=== PATIENT | male | born 1980 | race Caucasian/White ===

== ENCOUNTER 2019-02-12 07:45 | Inpatient (IN) | payer OTHER ==
[2019-02-12 08:21] LABS: Absolute Lymphocytes (CBC) 1.7 K/uL (0.7-4.9); Basophils % 0.4 % (0-1.3); Hematocrit 50.2 % (39.6-49.0); Lymphocytes % 25.7 % (15.3-44.8); MPV 8.1 fL (7.6-11.3); RBC Red Blood Cell Count 5.34 M/uL (4.33-5.43)
[2019-02-12 08:28] LABS: Protime INR 0.95
[2019-02-12 08:38] LABS: Potassium 3.7 mmol/L (3.5-5.1); Troponin (Emerg Dept Use Only) 0.25 ng/mL (0.0-0.045)
[2019-02-12] MEDS ORDERED: ASPIRIN 81 MG CHEWABLE TABLET ONE (08:41)
[2019-02-12] MEDS ORDERED: NITROGLYCERIN 0.4 MG/TAB SL ONE (08:41)
[2019-02-12] MEDS ORDERED: ENOXAPARIN 80 MG/0.8 ML SQ ONE (08:45)
--- NOTE | 2019-02-12 08:46 | RAD REPORT ---
EXAM DESCRIPTION: RAD - Chest Single View - 02/12/2019 8:19 am CLINICAL HISTORY: CHEST PAIN Chest pain. COMPARISON: Chest Single View dated 10/25/2016 FINDINGS: Portable technique limits examination quality. Interstitial prominence is present bilaterally. The heart is normal in size. No displaced fractures. IMPRESSION: Mild bilateral interstitial prominence could indicate interstitial pulmonary edema or vi ral pneumonitis.
--- NOTE | 2019-02-12 08:46 | ER ---
Nurse's Notes [facility] Name: Aquiles Lobato Age: 38 yrs Sex: Male : 1980 Arrival Date: 02/12/2019 Time: 07:46 Bed 16 Private MD: Diagnosis: Non-ST elevation (NSTEMI) myocardial infarction Presentation: 02/12 07:55 Presenting complaint: Patient states: around 5 am today, i started having chest pain, hj like a pressure and tingly and numb feeling that radiates to my L arm to my L upper back, it happened to me 3 years ago, denies N/V; reports SOB; pain is 6/10;. Transition of care: patient was not received from another setting of care. Onset of symptoms was February 12, 2019. Risk Assessment: Do you want to hurt yourself or someone else? Patient reports no desire to harm self or others. Initial Sepsis Screen: Does the patient meet any 2 criteria? No. Patient's initial sepsis screen is negative. Does the patient have a suspected source of infection? No. Patient's initial sepsis screen is negative. Care prior to arrival: None. 07:55 Method Of Arrival: Ambulatory 07:55 Acuity: TOMA 3 hj Triage Assessment: 07:59 General: Appears in no apparent distress. uncomfortable, Behavior is calm, cooperative, hj appropriate for age. Pain: Complains of pain in chest. Cardiovascular: Reports chest pain. Historical: - Allergies: 07:58 No Known Allergies; hj - PMHx: 07:58 Anxiety; Depression; hj - PSHx: 07:58 Vasectomy; hj - Immunization history:: Adult Immunizations up to date. - Social history:: Smoking status: Patient/guardian denies using tobacco, Patient uses alcohol. - Ebola Screening: : Patient negative for fever greater than or equal to 101.5 degrees Fahrenheit, and additional compatible Ebola Virus Disease symptoms Patient denies exposure to infectious person Patient denies travel to an Ebola-affected area in the 21 days before illness onset. - Family history:: not pertinent. - Hospitalizations: : No recent hospitalization is reported. Screenin:59 Abuse screen: Denies threats or abuse. Denies injuries from another. Nutritional hj screening: No deficits noted. Tuberculosis screening: No symptoms or risk factors identified. Fall Risk None identified. Assessment: 08:00 Pain: Pain radiates to back and left arm Pain began gradually, 3 hours ago. hj Vital Signs: 07:58 BP 148 / 89; Pulse 73; Resp 18; Temp 98.5(O); Pulse Ox 99% on R/A; Weight 72.57 kg; hj Height 5 ft. 6 in. (167.64 cm); Pain 6/10; 08:28 BP 133 / 63; Pulse 65; Resp 18; Pulse Ox 100% on R/A; hj 08:49 BP 134 / 90; Pulse 71; Resp 18; Temp 97.2(TE); Pulse Ox 98% on R/A; hj 09:37 BP 141 / 80; Pulse 82; Resp 18; Temp 98.0(TE); Pulse Ox 99% on R/A; hj 07:58 Body Mass Index 25.82 (72.57 kg, 167.64 cm) hj ED Course: 07:46 Patient arrived in ED. as 07:50 Fortino Angel, RN is Primary Nurse. hj 07:55 Dinh Oneil MD is Attending Physician. rn 07:57 Triage completed. hj 08:00 Arm band placed on. hj 08:00 Patient has correct armband on for positive identification. Placed in gown. Bed in low hj position. Call light in reach. Side rails up X 1. industrial conveyor belt repairer on. Pulse ox on. NIBP on. 08:01 Patient maintains SpO2 saturation greater than 95% on room air. hj 08:10 Initial lab(s) drawn, by id, sent to lab. Inserted saline lock: 20 gauge in left hj antecubital area, using aseptic technique. Blood collected. 08:10 EKG done, by field service poultry technician. reviewed by Dinh Oneil MD. tc 08:24 XRAY Chest (1 view) In Process Unspecified. EDMS 08:45 Mukul Adam DO is Hospitalizing Provider. rn 10:00 No provider procedures requiring assistance completed. Patient admitted, IV remains in hj place. intact. Administered Medications: 08:38 Drug: Nitroglycerin 0.4 mg Route: Sublingual; hj 09:52 Follow up: Response: No adverse reaction hj 08:40 Drug: Aspirin Chewable Tablet 324 mg Route: PO; hj 09:52 Follow up: Response: No adverse reaction hj 08:43 Drug: Lovenox 1 mg/kg Route: Sub-Q; Site: left upper arm; hj 09:52 Follow up: Response: No adverse reaction hj 09:50 Drug: Effient 60 mg Route: PO; hj 09:57 Follow up: Response: No adverse reaction hj Outcome: 08:46 Decision to Hospitalize by Provider. rn 10:01 Admitted to Family Service Assistant accompanied by nurse, via stretcher, on monitor, with chart, hj Report called to ED pie bakery laborer nurse picked up pt; 10:01 Condition: stable 10:01 Instructed on the need for admit, Demonstrated understanding of instructions. 10:02 Patient left the ED. janice Signatures: Dispatcher [employer] Erendira Mayers Roman, MD MD rn Callis, Tiffany, farm general manager EKG [facility] Fortino Angel RN ANNMARIE
--- NOTE | 2019-02-12 08:47 | EDPHYS ---
Physician Documentation [facility] Name: Aquiles Lobato Age: 38 yrs Sex: Male : 1980 Arrival Date: 02/12/2019 Time: 07:46 Bed 16 Private MD: ED Physician Dinh Oneil HPI: 02/12 08:03 This 38 yrs old Male presents to ER via Ambulatory with complaints of Chest rn Pain. 08:03 The patient or guardian reports chest pain that is located primarily in the substernal rn area. Onset: this morning, at 05:00. The pain radiates to the left arm. Associated signs and symptoms: Pertinent positives: diaphoresis, shortness of breath, Pertinent negatives: abdominal pain, cough, syncope, vomiting. The chest pain is described as a pressure, squeezing. Duration: The patient or guardian reports a single episode, that is still ongoing. Modifying factors: The symptoms are alleviated by nothing. the symptoms are aggravated by nothing. Severity of pain: At its worst the pain was moderate in the emergency department the pain is unchanged. The patient has experienced a previous episode. REports woke up with chest tightness that began at 0500, constantly getting worse, similar to previous MA 3 years ago, takes aspirin and beta tahir, assoc with diaphoresis and sob. . Historical: - Allergies: 07:58 No Known Allergies; hj - PMHx: 07:58 Anxiety; Depression; hj - PSHx: 07:58 Vasectomy; hj - Immunization history:: Adult Immunizations up to date. - Social history:: Smoking status: Patient/guardian denies using tobacco, Patient uses alcohol. - Ebola Screening: : Patient negative for fever greater than or equal to 101.5 degrees Fahrenheit, and additional compatible Ebola Virus Disease symptoms Patient denies exposure to infectious person Patient denies travel to an Ebola-affected area in the 21 days before illness onset. - Family history:: not pertinent. - Hospitalizations: : No recent hospitalization is reported. ROS: 08:03 Constitutional: Negative for fever, chills, and weight loss, Eyes: Negative for injury, rn pain, redness, and discharge, Neck: Negative for injury, pain, and swelling, Cardiovascular: Negative for palpitations, and edema, Respiratory: Negative for cough, wheezing, and pleuritic chest pain, Abdomen/GI: Negative for abdominal pain, nausea, vomiting, diarrhea, and constipation, MS/Extremity: Negative for injury and deformity, Skin: Negative for injury, rash, and discoloration, Neuro: Negative for headache, weakness, numbness, tingling, and seizure. Exam: 08:03 Constitutional: This is a well developed, well nourished patient who is awake, alert, rn appears concerned Head/Face: Normocephalic, atraumatic. ENT: MMM Cardiovascular: Regular rate and rhythm. No pulse deficits. Respiratory: Lungs have equal breath sounds bilaterally, clear to auscultation. No increased work of breathing, no retractions or nasal flaring. Abdomen/GI: soft, non-tender MS/ Extremity: Pulses equal, no cyanosis. Neurovascular intact. Full, normal range of motion. Equal circumference. Neuro: Awake and alert, GCS 15, oriented to person, place, time, and situation. Cranial nerves II-XII grossly intact. Motor strength 5/5 in all extremities. Sensory grossly intact. Vital Signs: 07:58 BP 148 / 89; Pulse 73; Resp 18; Temp 98.5(O); Pulse Ox 99% on R/A; Weight 72.57 kg; hj Height 5 ft. 6 in. (167.64 cm); Pain 6/10; 08:28 BP 133 / 63; Pulse 65; Resp 18; Pulse Ox 100% on R/A; hj 08:49 BP 134 / 90; Pulse 71; Resp 18; Temp 97.2(TE); Pulse Ox 98% on R/A; hj 09:37 BP 141 / 80; Pulse 82; Resp 18; Temp 98.0(TE); Pulse Ox 99% on R/A; hj 07:58 Body Mass Index 25.82 (72.57 kg, 167.64 cm) MDM: 07:55 Patient medically screened. rn 08:44 Differential diagnosis: acute myocardial infarction, acute pericarditis, coronary rn artery disease stable angina, unstable angina. The patient was given aspirin in the Emergency Department. Data reviewed: vital signs, nurses notes, lab test result(s), EKG, radiologic studies, plain films, and as a result, I will admit patient. Counseling: I had a detailed discussion with the patient and/or guardian regarding: the historical points, exam findings, and any diagnostic results supporting the discharge/admit diagnosis, lab results, radiology results, the need for further work-up and treatment in the hospital. Admission orders: after a detailed discussion of the patient's condition and case, the admit orders are written by me. ED course: Pt with concerning cardiac story, + hx of MA, elevated troponin, given aspirin/nitro/lovenox in ER, will admit for cardiac eval and likely cath.. 09:01 ED course: Consulted with Dr. Null \T\ [id number], will see patient.. rn 02/12 08:01 Order name: Basic Metabolic Panel; Complete Time: 08:40 rn 02/12 08:01 Order name: CBC with Diff; Complete Time: 08:40 rn 02/12 08:01 Order name: NT PRO-BNP; Complete Time: 08:40 rn 02/12 08:01 Order name: PT-INR; Complete Time: 08:40 rn 02/12 08:01 Order name: Troponin (emerg Dept Use Only); Complete Time: 08:40 rn 02/12 08:01 Order name: XRAY Chest (1 view); Complete Time: 08:53 rn 02/12 07:50 Order name: EKG; Complete Time: 07:51 02/12 09:04 Order name: EKG Electrocardiogram EDMS 02/12 09:04 Order name: EKG Electrocardiogram EDMS 02/12 09:38 Order name: CL CARDIAC CATH - REQUEST EDMS 02/12 08:01 Order name: Cardiac monitoring; Complete Time: 08:02 rn 02/12 08:01 Order name: EKG - Nurse/Tech; Complete Time: 08:02 rn 02/12 08:01 Order name: IV Saline Lock; Complete Time: 08:10 rn 02/12 08:01 Order name: Labs collected and sent; Complete Time: 08:10 rn 02/12 08:01 Order name: O2 Per Protocol; Complete Time: 08:03 rn 02/12 08:01 Order name: O2 Sat Monitoring; Complete Time: 08:03 rn 02/12 09:38 Order name: NPO EDMS Administered Medications: 08:38 Drug: Nitroglycerin 0.4 mg Route: Sublingual; hj 09:52 Follow up: Response: No adverse reaction hj 08:40 Drug: Aspirin Chewable Tablet 324 mg Route: PO; hj 09:52 Follow up: Response: No adverse reaction hj 08:43 Drug: Lovenox 1 mg/kg Route: Sub-Q; Site: left upper arm; hj 09:52 Follow up: Response: No adverse reaction hj 09:50 Drug: Effient 60 mg Route: PO; hj 09:57 Follow up: Response: No adverse reaction hj Disposition: 02/12/19 08:46 Hospitalization ordered by Mukul Adam for Inpatient Admission. Preliminary diagnosis is Non-ST elevation (NSTEMI) myocardial infarction. - Bed requested for Telemetry/MedSurg (Inpatient). - Status is Inpatient Admission. hj - Condition is Stable. - Problem is new. - Symptoms have improved. UTI on Admission? No Signatures: Dispatcher [employer] EDDinh Salamanca MD MD rn Joaquin, Henry, RN RN hj Corrections: (The following items were deleted from the chart) 10:02 08:46 Hospitalization Ordered by Mukul Adam DO for Inpatient Admission. Preliminary diagnosis is Non-ST elevation (NSTEMI) myocardial infarction. Bed requested for Telemetry/MedSurg (Inpatient). Status is Inpatient Admission. Condition is Stable. Problem is new. Symptoms have improved. UTI on Admission? No. rn
[2019-02-12] MEDS ORDERED: PRASUGREL (EFFIENT) 10 MG TAB PO ONE (09:35)
--- NOTE | 2019-02-12 09:37 | EKG ---
Test Date: 2019-02-12 Test Time: 08:55:18 Fusion Analyst: TATI MEASUREMENT RESULTS: Intervals: Rate: 68 NC: 122 QRSD: 92 QT: 438 QTc: 465 [place]: P: 55 NC: 122 QRS: 63 T: 144 INTERPRETIVE STATEMENTS: Normal sinus rhythm ST & T wave abnormality, consider lateral ischemia Prolonged QT Abnormal ECG Compared to ECG 02/12/2019 08:54:53 No significant changes Electronically Signed On 02-12-19 09:36:47 CDT by Keo Null
--- NOTE | 2019-02-12 09:37 | EKG ---
Test Date: 2019-02-12 Test Time: 08:54:53 Manager Business Intelligence: TATI MEASUREMENT RESULTS: Intervals: Rate: 65 NC: 124 QRSD: 92 QT: 444 QTc: 461 [place]: P: 57 NC: 124 QRS: 64 T: 151 INTERPRETIVE STATEMENTS: Normal sinus rhythm ST & T wave abnormality, consider lateral ischemia Prolonged QT Abnormal ECG Compared to ECG 02/12/2019 07:59:27 ST (T wave) deviation now present Possible ischemia now present Prolonged QT interval now present Atrial abnormality no longer present Left ventricular hypertrophy no longer present Electronically Signed On 02-12-19 09:37:00 CDT by Keo Null
--- NOTE | 2019-02-12 09:39 | EKG ---
Test Date: 2019-02-12 Test Time: 07:59:27 Consumer Marketing Manager: TATI MEASUREMENT RESULTS: Intervals: Rate: 72 GA: 120 QRSD: 90 QT: 388 QTc: 424 [place]: P: 61 GA: 120 QRS: 64 T: 176 INTERPRETIVE STATEMENTS: Normal sinus rhythm Right atrial enlargement Left ventricular hypertrophy ST and T abnormality consider subendocardial ischemia Abnormal ECG Compared to ECG 10/26/2016 06:21:12 Atrial abnormality now present Left ventricular hypertrophy now present Sinus bradycardia no longer present Electronically Signed On 02-12-19 09:38:16 CDT by Keo Null
[2019-02-12] MEDS ORDERED: HEPA 1000U/500MLS 2,000 UNIT/1,000 ML BAG IV ONE (09:40)
[2019-02-12] MEDS ORDERED: ATROPINE SULF 1 MG/10 ML SYR IV ONE (09:40)
[2019-02-12] MEDS ORDERED: NA CHLORIDE 0.9% 0 ML ONE (09:40)
[2019-02-12] MEDS ORDERED: NITROGLYCERIN 100 MCG/ML SYR (for cath lab use only) IV ONE (09:41)
[2019-02-12] MEDS ORDERED: HEPARIN 5000 UNIT/ML 1 ML VIAL ONE (09:41)
[2019-02-12] MEDS ORDERED: NICARDIPINE HCL 25 MG/10 ML IV ONE (09:41)
[2019-02-12] MEDS ORDERED: NA CHLORIDE 0.9% 500 ML ONE (09:42)
[2019-02-12] MEDS ORDERED: PRASUGREL (EFFIENT) 10 MG TAB ONE (09:54)
--- NOTE | 2019-02-12 09:54 | P.HP ---
Certification for Inpatient Patient admitted to: Inpatient With expected LOS: >2 Midnights Patient will require the following post-hospital care: None Practitioner: I am a practitioner with admitting privileges, knowledge of patient current condition, hospital course, and medical plan of care. Services: Services provided to patient in accordance with Admission requirements found in Title 42 Section 412.3 of the Code of Federal Regulations Patient History Date of Service: 02/12/19 Primary Care Provider: Dr. Melo; Cardiology-Dr. Garrido Reason for admission: Chest pain History of Present Illness: 38-year-old male presented to the emergency room with chest pain. Patient reported severe chest pain to the substernal region this morning. It occurred at rest. He rated the pain about a 7 out of 10 up to 10/10. It was a crushing pressure-like sensation. It was associated with some shortness of breath, lightheadedness, and dizziness. Pain radiated to the left arm with numbness. He also had some radiation to the back. He actually drove himself to the ER for further evaluation. Patient with underlying hypertension and tobacco abuse. In the ER patient evaluated. Patient given nitro to help with chest pain. Vital signs stable this time. EKG showed some lateral strain. Initial troponin 0.25. White count 6.7. Hemoglobin 17. Sodium 141, potassium 3.7. BUN of 16, creatinine 1.26 with a GFR 63. Glucose 71. Patient admitted for further evaluation and treatment. When I saw the patient in the ER, Cardiology was also present. Cardiology plans for emergent heart catheterization to further evaluate and treat. Cardiology reports that patient had an echo about 3 years ago with LVH. Allergies No Known Allergies Allergy (Verified 10/25/16 15:31) Home medications list reviewed: Yes Home Medications: Escitalopram Oxalate [Lexapro] 10 mg PO BEDTIME 10/25/16 Metoprolol Tartrate [Lopressor*] 50 mg PO BID #60 tab 10/26/16 - Past Medical/Surgical History Diabetic: No -: Depression -: Hypertension with LVH -: Vasectomy Psychosocial/ Personal History: Patient is - Family History Mother -: Hypertension - Social History Smoking Status: Current every day smoker Counseled patient to stop smoking for: less than 10 minutes Smoking therapy provided: Yes Patient receptive to therapy: Yes Alcohol use: Yes CD- Drugs: No Caffeine use: Yes Place of Residence: Home Review of Systems General: Weakness, As per HPI Eyes: Unremarkable ENT: Unremarkable Respiratory: Shortness of Breath, As per HPI Cardiovascular: Chest Pain, Light Headedness, As per HPI Gastrointestinal: Nausea, As per HPI Genitourinary: Unremarkable Musculoskeletal: Unremarkable Integumentary: Unremarkable Neurological: Numbness, As per HPI Lymphatics: Unremarkable Physical Examination - Physical Exam General: Alert, In no apparent distress, Oriented x3, Cooperative HEENT: Atraumatic, Normocephalic, PERRLA, Mucous membr. moist/pink Neck: Supple, No Thyromegaly Respiratory: Clear to auscultation bilaterally, Normal air movement Cardiovascular: Normal pulses, Regular rate/rhythm Gastrointestinal: Normal bowel sounds, Soft and benign, Non-distended, No ascites, No tenderness, No masses, No rebound, No guarding Musculoskeletal: No erythema, No tenderness, No warmth Integumentary: No tenderness/swelling, No erythema, No warmth, No cyanosis Neurological: Normal speech, Normal strength at 5/5 x4 extr, Normal tone, Normal affect - Studies Laboratory Data (last 24 hrs) 02/12/19 08:10: PT 11.2, INR 0.95 02/12/19 08:10: WBC 6.7, Hgb 17.0, Hct 50.2 H, Plt Count 288 02/12/19 08:10: Sodium 141, Potassium 3.7, BUN 16, Creatinine 1.26, Glucose 71 L Assessment and Plan - Plan Impression: Chest pain secondary to non ST wave PR Hypertension with history of LVH Tobacco abuse Occasional alcohol use Plan: Chest pain secondary to non ST wave PR: Patient will be admitted to ICU to further address and treat. Case discussed at length with cardiology who was present during the examination. Cardiology plans for Emergent heart catheterization within the hour for further evaluation and likely treatment. Will continue with aspirin, Plavix, beta-tahir therapy and high-dose Lipitor. Will continue to monitor closely. Will keep the patient NPO at this time in preparation for heart catheterization. Await findings. Will provide DVT prophylaxis-SCDs for now. Anticipate discharge in the next 24-48 hr pending results of heart catheterization. Hypertension with history of LVH: Will start metoprolol. Will check echocardiogram. Tobacco abuse: Tobacco cessation addressed in detail. Patient desires to quit. Will provide nicotine patch. Occasional alcohol use: Encouraged alcohol cessation. Discharge Plan: Home Plan to discharge in: 48 Hours - Advance Directives Does patient have a Living Will: No Does patient have a Durable POA for Healthcare: No - Code Status/Comfort Care Code Status Assessed: Yes (Patient is full code.) Time Spent Managing Pts Care (In Minutes): 60
[2019-02-12] MEDS ORDERED: FENTANYL CITR 100 MCG/2 ML ONE (10:09)
[2019-02-12] MEDS ORDERED: MIDAZOLAM HCL 2 MG/2 ML INJ ONE ×2 (10:09→10:22)
[2019-02-12] MEDS ORDERED: ONDANSETRON 4 MG/2 ML VIAL IV PRN (11:43)
[2019-02-12] MEDS ORDERED: ACETAMINOPHEN 500 MG TAB PO PRN (11:43)
[2019-02-12 12:11] VITALS: BMI 23.5
[2019-02-12] MEDS: TRAMADOL HCL 50 MG TAB PO PRN ×2 (13:10→21:10)
--- NOTE | 2019-02-12 13:11 | CON ---
History Of Present Illness: Mr. Lobato is 38. He has enjoyed good health most of his life. 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 He continues to smoke. Alcohol use, moderate. No illegal drugs. Started having ches t pain this morning at 5 a.m. Chest pain is central, pressure-like, sweating, nausea, and in general , he just feels bad, not very painful, so he came to the ER. An EKG shows nonspecific changes, not v elias different from his EKGs from a few years ago. His enzymes are abnormal and we believe he is havi ng a non-ST elevation [place]. I have recommended cardiac cath to him. He seems to understand the proced ure, potential benefits, indications, risks, and he agrees to proceed, although he has not signed con sent form yet. He is going to discuss the whole situation with his . The patient has never had a cardiac cath before or a stress test. His only outpatient medication is metoprolol, prescribed by Dr. Melo. Physical Examination: General: He is alert, oriented, pleasant, well developed, well nourished. He is not overweight or o bese. Alert and oriented. Vital Signs: His blood pressure is 133/63, pulse 65. He is 5 feet 6 inches and his weight is 72.5 k g. HEENT: Normal. Neck: Carotids, no bruit. Lungs: Clear. Cardiac: Within normal limits. Abdomen: Soft. Extremities: Normal. Normal pulses. Diagnostic Studies: His electrocardiogram shows diffuse ST abnormality and T-wave inversion. Border line voltage for LVH. Impression: I have recommended emergency cardiac cath to Mr. Lobato. He seems to understand the procedure. If he signs the consent form, we will do it as soon as we can arrange it. JOAQUÍN/CARSON Voice ID: [id number] Report ID: [id number]
[2019-02-12 13:48] LABS: Barbiturates NEGATIVE (NEGATIVE); Benzodiazepines POSITIVE (NEGATIVE); Cocaine NEGATIVE (NEGATIVE); METHAMPHETAM NEGATIVE (NEGATIVE); Methadone NEGATIVE (NEGATIVE); Opiates NEGATIVE (NEGATIVE); Phencyclidine NEGATIVE (NEGATIVE); THC Cannibis NEGATIVE (NEGATIVE)
--- NOTE | 2019-02-12 14:56 | ECHO ---
HEIGHT: 5 ft 7 in WEIGHT: 150 lb 0 oz DATE OF STUDY: 02/12/[address]: Mukul Adam DO 2-DIMENSIONAL: YES M.MODE: YES DOPPLER: YES COLOR FLOW: YES TDS: NO PORTABLE: YES DEFINITY: NO BUBBLE STUDY: NO DIAGNOSIS: EVALUATE FOR HYPERTROPHIC CARDIOMYOPATHY CARDIAC HISTORY: CATHERIZATION: YES SURGERY: NO PROSTHETIC VALVE: NO PACEMAKER: NO MEASUREMENTS (cm) DIASTOLIC (NORMALS) SYSTOLIC (NORMALS) IVSd 1.2 (0.6-1.2) LA Diam 3.4 (1.9-4.0) LVEF 68% LVIDd 3.6 (3.5-5.7) LVIDs 2.2 (2.0-3.5) %FS 37% LVPWd 1.3 (0.6-1.2) Ao Diam 3.0 (2.0-3.7) 2 DIMENSIONAL ASSESSMENT: RIGHT ATRIUM: NORMAL LEFT ATRIUM: NORMAL RIGHT VENTRICLE: NORMAL LEFT VENTRICLE: ASYMMETRICAL SEPTAL HYPERTROPHY TRICUSPID VALVE: NORMAL MITRAL VALVE: NORMAL PULMONIC VALVE: NORMAL AORTIC VALVE: NORMAL PERICARDIAL EFFUSION: NONE AORTIC ROOT: NORMAL LEFT VENTRICULAR WALL MOTION: NORMAL DOPPLER/COLOR FLOW: NORMAL. NO LEFT VENTRICULAR OUTFLOW TRACT GRADIENT. COMMENTS: NORMAL LEFT VENTRICULAR EJECTION FRACTION. ASYMMETRICAL SEPTAL HYPERTROPHY WITHOUT SYSTOLIC ANTERIOR MOTION OF MITRAL VALVE AND WITHOUT LEFT VENTRICULAR OUTFLOW TRACT GRADIENT. TECHNOLOGIST: Betty CLOUD
[2019-02-12 15:42] LABS: CKMB Creatine Kinase MB 1.4 ng/mL (0.3-3.6); Troponin I 0.25 ng/mL (0.0-0.045)
[2019-02-12] MEDS: HYDROCODONE/APAP 7.5/325 MG TAB PO PRN (16:58)
[2019-02-12] MEDS: DOCOSAHEXANOIC AC/EPA 1000 MG PO SCH (20:50)
[2019-02-12] MEDS: DILTIAZEM HCL 60 MG TAB PO SCH (20:50)
[2019-02-12] MEDS ORDERED: ATORVASTATIN 80 MG TAB PO SCH (21:00)
--- NOTE | 2019-02-12 21:47 | OP ---
Surgeon: Keo Null MD Procedures: Left heart catheterization, coronary and left ventricular angiography. Findings: The patient has normal coronary arteries. There are few anomalies that are not responsibl e for his chest pain, they are not a clinical problem. He has a very large conus branch that gives r ise to blood flow to the right ventricular free wall. He is right dominant and his distal LAD has a myocardial bridge, but not any stenosis. He does not need any stents. His ejection fraction is norm al. Left ventricular end-diastolic pressure is 13, upper limits of normal. Procedure In Detail: The patient was brought to the cardiac lab rn in a fasting state, sedated wit h Versed and fentanyl. Prepared and draped in usual sterile fashion. Right radial approach was used . Lidocaine 1% was used to anesthetize the skin around the right radial artery. It was then entered with a 21-gauge needle, cannulated with a 0.021 inch diameter guidewire. 6-[place] Terumo radial she ath was then placed and radial cocktail was given consisting of heparin, nitroglycerin, and nicardipi ne. A TIG catheter was advanced to the aortic root. It was used to angiogram right coronary, left v entricle and left coronary. At the end of the procedure when it was apparent he did not need any int ervention, the catheter was withdrawn over a J-wire. The sheath was removed. The arteriotomy closed with a TR Band. We will leave the TR Band for 12 hours before attempting to deflate it as the patie nt received Lovenox before the procedure. JOAQUÍN/CARSON Voice ID: [id number] Report ID: [id number]
[2019-02-12 23:18] LABS: CKMB Creatine Kinase MB 1.5 ng/mL (0.3-3.6); Troponin I 0.25 ng/mL (0.0-0.045)
[2019-02-13] MEDS: HYDROCODONE/APAP 7.5/325 MG TAB PO PRN (00:24)
[2019-02-13 05:28] LABS: Absolute Lymphocytes (CBC) 2.4 K/uL (0.7-4.9); Basophils % 0.5 % (0-1.3); Lymphocytes % 30.8 % (15.3-44.8); MPV 8.3 fL (7.6-11.3); RBC Red Blood Cell Count 4.87 M/uL (4.33-5.43)
[2019-02-13 06:02] LABS: Magnesium 2.3 mg/dL (1.8-2.4); Potassium 3.9 mmol/L (3.5-5.1)
[2019-02-13 06:03] LABS: Thyroid Stimulating Hormone 10.4 uIU/mL (0.360-3.740)
--- NOTE | 2019-02-13 07:03 | RAD REPORT ---
EXAM DESCRIPTION: RAD - C Spine Ap/Lat - 02/12/2019 11:33 pm CLINICAL HISTORY: Neck pain, left arm numbness COMPARISON: None. FINDINGS: Cervical bodies are normal in height and alignment. No fracture or acute bony process seen . Slight narrowing of the C5-6 disc space noted. There is no prevertebral soft tissue thickening or other suspicious soft tissue finding. External artifacts overlie the lower neck. IMPRESSION: Slight narrowing of the C5-6 disc space. No acute findings seen. Concerns for disc herniation, central canal abnormality or occult bone process can be addressed with MR imaging.
[2019-02-13] MEDS ORDERED: NA CHLORIDE 0.9% 1,000 ML IV ONE (07:47)
[2019-02-13] MEDS: NICOTINE 21 MG/PAT TD SCH ×2 (08:02→08:55)
[2019-02-13] MEDS: DOCOSAHEXANOIC AC/EPA 1000 MG PO SCH (08:03)
[2019-02-13] MEDS: TRAMADOL HCL 50 MG TAB PO PRN (08:37)
[2019-02-13] MEDS: DILTIAZEM HCL 60 MG TAB PO SCH (08:43)
[2019-02-13] MEDS ORDERED: POTASSIUM CL SA 10 MEQ TAB PO ONE (09:00)
[2019-02-13] MEDS ORDERED: ASPIRIN EC 81 MG TAB PO SCH (09:00)
[2019-02-13] MEDS ORDERED: FOLIC ACID 1 MG TABLET PO SCH (09:00)
--- NOTE | 2019-02-13 09:15 | P.DS ---
Admission Date: 02/12/19 Discharge Date: 02/13/19 Primary Care Provider: Dr. Melo; Cardiology-Dr. Garrido Disposition: ROUTINE DISCHARGE Discharge Condition: GOOD Reason for Admission: Chest pain Consultations: Cardiology-Dr. Null Procedures: Heart Cath: Surgeon: Keo Null MD Procedures: Left heart catheterization, coronary and left ventricular angiography. Findings: The patient has normal coronary arteries. There are few anomalies that are not responsible for his chest pain, they are not a clinical problem. He has a very large conus branch that gives rise to blood flow to the right ventricular free wall. He is right dominant and his distal LAD has a myocardial bridge, but not any stenosis. He does not need any stents. His ejection fraction is normal. Left ventricular end-diastolic pressure is 13, upper limits of normal. ECHO: Ejection fraction 68% LEFT VENTRICULAR WALL MOTION: NORMAL DOPPLER/COLOR FLOW: NORMAL. NO LEFT VENTRICULAR OUTFLOW TRACT GRADIENT. COMMENTS: NORMAL LEFT VENTRICULAR EJECTION FRACTION. ASYMMETRICAL SEPTAL HYPERTROPHY WITHOUT SYSTOLIC ANTERIOR MOTION OF MITRAL VALVE AND WITHOUT LEFT VENTRICULAR OUTFLOW TRACT GRADIENT. Xray: FINDINGS: Cervical bodies are normal in height and alignment. No fracture or acute bony process seen. Slight narrowing of the C5-6 disc space noted. There is no prevertebral soft tissue thickening or other suspicious soft tissue finding. External artifacts overlie the lower neck. IMPRESSION: Slight narrowing of the C5-6 disc space. No acute findings seen. Medical problem list: Chest pain with elevated troponin suspected non ST wave DC status post heart catheterization showing normal Coronary arteries Left-sided upper extremity paresthesia likely related to degenerative disc disease with x-ray showing slight narrowing of the C5-C6 disc space Hypertension with echocardiogram showing asymmetric septal hypertrophy Subclinical hypothyroidism Tobacco abuse Occasional alcohol use Brief History of Present Illness: 38-year-old male presented to the emergency room with chest pain. Patient reported severe chest pain to the substernal region this morning. It occurred at rest. He rated the pain about a 7 out of 10 up to 10/10. It was a crushing pressure-like sensation. It was associated with some shortness of breath, lightheadedness, and dizziness. Pain radiated to the left arm with numbness. He also had some radiation to the back. He actually drove himself to the ER for further evaluation. Patient with underlying hypertension and tobacco abuse. In the ER patient evaluated. Patient given nitro to help with chest pain. Vital signs stable this time. EKG showed some lateral strain. Initial troponin 0.25. White count 6.7. Hemoglobin 17. Sodium 141, potassium 3.7. BUN of 16, creatinine 1.26 with a GFR 63. Glucose 71. Patient admitted for further evaluation and treatment. When I saw the patient in the ER, Cardiology was also present. Cardiology plans for emergent heart catheterization to further evaluate and treat. Cardiology reports that patient had an echo about 3 years ago with [facility]. Hospital Course: Patient presented with chest pain. Patient found to have elevated troponin. Non ST wave DC was suspected. Patient was seen and evaluated by Cardiology in the emergency room. Emergent heart catheterization was performed. Heart catheterization showed Normal Coronary arteries. No evidence of coronary artery disease identified. Echocardiogram showed normal ejection fraction with asymmetric septal hypertrophy. Patient did well in his stay. Blood pressure remains within normal range. Patient previously on beta-tahir therapy- metoprolol 25 mg daily. At discharge no significant chest pain noted. Patient stable for discharge. At discharge recommend to discontinue metoprolol. At discharge patient will continue with verapamil 60 mg 1 pill daily. He is to hold blood pressure medication if systolic less than 120. Recommend to maintain blood pressures less 150/80. Further adjustment can be done by his PCP. Recommend to monitor blood pressures closely to further monitor. Patient may continue with aspirin 81 mg daily. Recommend follow up with cardiology in 1 -2 weeks to follow up this hospitalization. Patient also reported left-sided upper extremity paresthesias. Cardiac causes ruled out. Patient had x-ray to the spine showing slight narrowing of the C5- C6 disc space. Patient likely with underlying disc disease. Recommend follow up with his PCP to further address. Patient will likely require MRI to further evaluate. Patient may benefit with spine orthopedic evaluation as an outpatient to further address. At discharge patient will be provided Neurontin 100 mg twice daily to be use as needed for pain. Patient found to have subclinical hypothyroidism. Tsh 10.4, free T4 0.86. Recommend to recheck lab-tsh and free T4 in 2-4 weeks. If consistently abnormal patient may require medication for hypothyroidism. This can be further addressed by his PCP. Patient with tobacco and alcohol use. Recommend cessation. Cessation education will be provided. Nicotine patch will be provided. Vital Signs/Physical Exam: Temp Pulse Resp BP Pulse Ox 98 F 65 18 106/80 97 02/13/19 04:00 02/13/19 08:43 02/13/19 08:00 02/13/19 08:43 02/13/19 07:00 General: Alert, In no apparent distress, Oriented x3, Cooperative HEENT: Atraumatic Neck: Supple Respiratory: Clear to auscultation bilaterally, Normal air movement Cardiovascular: Normal pulses, Regular rate/rhythm Gastrointestinal: Normal bowel sounds, Soft and benign, Non-distended, No tenderness, No masses, No rebound, No guarding Musculoskeletal: No erythema, No tenderness, No warmth Integumentary: No tenderness/swelling, No erythema, No warmth, No cyanosis Neurological: Normal speech, Normal strength at 5/5 x4 extr, Normal tone, Normal affect Laboratory Data at Discharge: WBC 7.8 K/uL (4.3-10.9) D 02/13/19 04:54 Hgb 15.6 g/dL (13.6-17.9) 02/13/19 04:54 Hct 46.0 % (39.6-49.0) 02/13/19 04:54 Plt Count 270 K/uL (152-406) 02/13/19 04:54 PT 11.2 SECONDS (9.5-12.5) 02/12/19 08:10 INR 0.95 02/12/19 08:10 Sodium 143 mmol/L (136-145) 02/13/19 04:54 Potassium 3.9 mmol/L (3.5-5.1) 02/13/19 04:54 BUN 13 mg/dL (7-18) 02/13/19 04:54 Creatinine 1.05 mg/dL (0.55-1.3) 02/13/19 04:54 Glucose 89 mg/dL (74-106) 02/13/19 04:54 Magnesium 2.3 mg/dL (1.8-2.4) 02/13/19 04:54 Troponin I 0.25 ng/mL (0.0-0.045) H 02/12/19 22:49 Triglycerides 112 mg/dL (<150) 02/13/19 04:54 Cholesterol 147 mg/dL (<200) 02/13/19 04:54 HDL Cholesterol 39 mg/dL (40-60) L 02/13/19 04:54 Cholesterol/HDL Ratio 3.77 02/13/19 04:54 Home Medications: Aspirin 81 mg PO DAILY 02/12/19 Diltiazem Tab [Cardizem Tab*] 60 mg PO DAILY #30 tab 02/13/19 Gabapentin [Neurontin] 100 mg PO BID PRN #30 cap 02/13/19 Nicotine [Nicoderm*] 21 mg TD DAILY #30 patch.td24 02/13/19 New Medications: Diltiazem Tab [Cardizem Tab*] 60 mg PO DAILY #30 tab Gabapentin [Neurontin] 100 mg PO BID PRN #30 cap PRN Reason: Pain Scale 2-4 (Mild) Nicotine [Nicoderm*] 21 mg TD DAILY #30 patch.td24 Patient Discharge Instructions: 1. Recommend follow up with PCP in 1-2 weeks to follow up this hospitalization. 2. Patient presented with chest pain. Patient found to have elevated troponin. Non ST wave DC was suspected. Patient was seen and evaluated by Cardiology in the emergency room. Emergent heart catheterization was performed. Heart catheterization showed Normal Coronary arteries. No evidence of coronary artery disease identified. Echocardiogram showed normal ejection fraction with asymmetric septal hypertrophy. Patient did well in his stay. Blood pressure remains within normal range. Patient previously on beta-tahir therapy-metoprolol 25 mg daily. At discharge no significant chest pain noted. Patient stable for discharge. At discharge recommend to discontinue metoprolol. At discharge patient will continue with verapamil 60 mg 1 pill daily. He is to hold blood pressure medication if systolic less than 120. Recommend to maintain blood pressures less 150/80. Further adjustment can be done by his PCP. Recommend to monitor blood pressures closely to further monitor. Patient may continue with aspirin 81 mg daily. Recommend follow up with cardiology in 1-2 weeks to follow up this hospitalization. 3. Patient also reported left-sided upper extremity paresthesias. Cardiac causes ruled out. Patient had x-ray to the spine showing slight narrowing of the C5-C6 disc space. Patient likely with underlying disc disease. Recommend follow up with his PCP to further address. Patient will likely require MRI to further evaluate. Patient may benefit with spine orthopedic evaluation as an outpatient to further address. At discharge patient will be provided Neurontin 100 mg twice daily to be use as needed for pain. 4. Patient found to have subclinical hypothyroidism. Tsh 10.4, free T4 0.86. Recommend to recheck lab-tsh and free T4 in 2-4 weeks. If consistently abnormal patient may require medication for hypothyroidism. This can be further addressed by his PCP. 5. Patient with tobacco and alcohol use. Recommend cessation. Cessation education will be provided. Nicotine patch will be provided. Diet: AHA Activity: Ad murray Time spent managing pt's care (in minutes): 55
[2019-02-13 09:26] VITALS: BP 122/72
[2019-02-13 10:06] VITALS: O2SAT 98
[2019-02-13 10:17] VITALS: TEMP 97.4
--- NOTE | 2019-02-13 22:16 | PN ---
Date of Progress Note: 02/13/2019 Mr. Lobato had a heart catheterization by Dr. Null on 02/12/2019 because of atypical chest pain and positive stress test. His heart catheterization, however, was normal. Dr. Null did using the right wrist approach. His right wrist is intact. He has good pulses. No hematoma. Telemetry show ed no changes. The patient is pain free. I will send him home today on a beta-tahir. I put him o n that in the past and he has tolerated that well. He can go home whenever it is okay with Dr. Mana HOGAN/CARSON Voice ID: [id number] Report ID: [id number]
== END 2019-02-13 11:05 | disposition home or self-care (01) | DRG 282 ==
LOC: ER 07:45 → ERHOLD 09:31 → 3RD-ICU 11:00
PROVIDERS: ADMIT Family Medicine; ATTEND Family Medicine
PROC: 4A023N7 Measurement of Cardiac Sampling and Pressure, Left Heart, Percutaneous Approach (ICD-10-PCS; principal; 2019-02-12)
PROC: B201YZZ Plain Radiography of Multiple Coronary Arteries using Other Contrast (ICD-10-PCS; 2019-02-12)
PROC: B205YZZ Plain Radiography of Left Heart using Other Contrast (ICD-10-PCS; 2019-02-12)
DX: I21.4 Non-ST elevation (NSTEMI) myocardial infarction (principal); M50.322 Other cervical disc degeneration at C5-C6 level; I10 Essential (primary) hypertension; E02 Subclinical iodine-deficiency hypothyroidism; F17.210 Nicotine dependence, cigarettes, uncomplicated; Z72.89 Other problems related to lifestyle
CPT/HCPCS: 36415; 71045; 72040; 80048; 80061; 80307; 80320; 82550; 82553; 83735; 83880; 84439; 84443; 84484; 85025; 85610; 93005; 93306; 93458; 96372; 99285; C1893; J0583; J1644; J1650; J2250; J3010; J7030